=== PATIENT | male | born 1990 ===

== ENCOUNTER 2018-01-01 01:09 | Emergency (ER) | payer SELFPAY ==
[2018-01-01 01:28] VITALS: TEMP 98.8
[2018-01-01] MEDS ORDERED: Tdap Vaccine 0.5 ml Vial (10-64 yrs) IM ONE (02:05)
--- NOTE | 2018-01-01 03:56 | ED PDOC ---
Addendum entered and electronically signed by Yvonne Ca PA 01/01/18 06:09: Addendum Addendum: After wound was dressed, continued to ooze so 2 sutures placed with 4-0 nylon, lidocaine (no epi) used for digital nerve block. 01/01/18 06:08 Original Note: Upper Extremity Pain/Injury Time Seen by Provider: 01/01/18 01:25 Chief Complaint (Nursing): Abnormal Skin Integrity Chief Complaint (Provider): Skin Laceration History Per: Patient History/Exam Limitations: no limitations Onset/Duration Of Symptoms: Hrs Current Symptoms Are (Timing): Still Present Quality: "Pain" Additional Complaint(s): 27 year old male presents to the ER for an evaluation of a laceration between his right thumb and forefinger. Patient states he was carrying a box of wine which dropped and glass shattered. Patient sustained an injury between his thumb and forefinger. He believes there is glass but no foreign sensation of bodies. Patient reports he cannot move his right thumb. Denies drinking alcohol, dizziness or trauma to any other areas in the body. Past Medical History Reviewed: Historical Data, Nursing Documentation, Vital Signs Vital Signs: Last Vital Signs Temp 98.8 F 01/01/18 01:26 Pulse 85 01/01/18 01:26 Resp 17 01/01/18 01:26 BP 139/68 01/01/18 01:26 Pulse Ox 96 01/01/18 01:26 - Medical History PMH: No Chronic Diseases - Family History Family History: States: Unknown Family Hx - Home Medications Home Medications: Ambulatory Orders Medication Instructions Recorded Cephalexin [cephalexin] 500 mg PO BID 7 Days cap 01/01/18 Ibuprofen [Motrin Tab] 600 mg PO Q6H PRN 7 Days tab 01/01/18 - Allergies Allergies/Adverse Reactions: Allergies Allergy/AdvReac Type Severity Reaction Status Date / Time No Known Allergies Allergy Verified 01/01/18 01:27 Review of Systems ROS Statement: Except As Marked, All Systems Reviewed And Found Negative Musculoskeletal: Positive for: Hand Pain (right) Neurological: Negative for: Dizziness Psych: Negative for: Suicidal ideation (homicidal ideation) Physical Exam - Reviewed Nursing Documentation Reviewed: Yes Vital Signs Reviewed: Yes - Physical Exam Appears: Positive for: Well, Non-toxic, No Acute Distress Head Exam: Positive for: ATRAUMATIC, NORMAL INSPECTION, NORMOCEPHALIC Skin: Positive for: Normal Color, Warm, Dry. Negative for: Rash Pulses-Radial (R): 2+ Extremity: Positive for: Normal ROM (Able to actively and passively flex and extend digits 2-4 on right hand. Unable to active move at DIP or PIP. Patient able to flex and DIP passively), Tenderness (Superficial skin abrasion on 3rd digit of right hand, no foreign body noted), Capillary Refill (warm with good capillary refill ), Other (approximately 3-4cm superficial laceration at interdigital web space between right thumb and 2nd digit, close to base of thumb, minimal bleeding, no foreign bodies noticed upon inspection and exploration; superficial skin avulsion at base of 3rd digit on Right hand. ). Negative for: Deformity (Positive active and passive extension and flexion of right wrist ) Neurologic/Psych: Positive for: Alert, Oriented (x3). Negative for: Motor/Sensory Deficits - ECG O2 Sat by Pulse Oximetry: 96 (RA) Pulse Ox Interpretation: Normal Medical Decision Making Medical Decision Making: Time: 0203 Impression: 27 y/o male with superficial laceration of interdigital web between the right thumb and forefinger. Plan to consult hand surgeon. Initial Plan: Tetanus 0.5ml Motrin 600mg Right Hand 3 Views Reevaluation X-ray: No foreign body appreciated or fracture noticed, just soft tissue swelling noted. Case discussed with Dr. Peter Villegas (hand surgeon) who recommends placing dressing with gauze and splint. Pt to f/u with Dr. Villegas today or on Thursday01/04/18 for further evaluation of thumb injury. ----- Scribe Attestation: Documented by Radha Ruiz, acting as a scribe for Yvonne Ca PA-C. Provider Scribe Attestation: All medical record entries made by the Scribe were at my direction and personally dictated by me. I have reviewed the chart and agree that the record accurately reflects my personal performance of the history, physical exam, medical decision making, and the department course for this patient. I have also personally directed, reviewed, and agree with the discharge instructions and disposition. Disposition - Clinical Impression Clinical Impression: Laceration of right hand - Patient ED Disposition Is Patient to be Admitted: No Discussed With : Peter Villegas Comment: Ok to dc home and patient to f/u in office today or on Thursday01/04/18 Doctor Will See Patient In The: Office Counseled Patient/Family Regarding: Studies Performed, Diagnosis, Need For Followup, Rx Given - Disposition Referrals: Peter Villegas MD [Medical Doctor] - Disposition: Routine/Home Disposition Time: 04:55 Condition: STABLE Additional Instructions: F/u with Dr. Peter Villegas (hand surgeon) for further evaluation of possible injury to tendon on Right hand. Keep wound clean and dry. Prescriptions: Cephalexin [cephalexin] 500 mg PO BID 7 Days cap Ibuprofen [Motrin Tab] 600 mg PO Q6H PRN 7 Days tab PRN Reason: Pain, Moderate (4-7) Forms: [employer] (Latvian) Print Language: GERMAN - POA Present On Arrival: Falls Or Trauma (Right hand laceration to base of Right thumb at interdigital web. Mild skin avulsion at base of 3rd digit Right hand. )
[2018-01-01] MEDS ORDERED: Lidocaine PF 2% (5 ml) Inj (For Cardiac Arrhy) ONE (05:20)
[2018-01-01 06:32] VITALS: BP 130/62; PULSE 79; RESP 16; O2SAT 99
--- NOTE | 2018-01-01 08:46 | RAD ---
PROCEDURE: Right Hand Radiographs. HISTORY: Right hand cut with glass wine bottles COMPARISON: None. FINDINGS: BONES: No acute fracture or destructive bony lesion identified. JOINTS: No subluxation or dislocation appreciated throughout. No osteoarthritic changes. SOFT TISSUES: No retained radiodense foreign body identified definitively. Trace emphysematous changes are questioned at soft tissues between the long and ring fingers, potentially reflecting laceration or penetrating injury. OTHER FINDINGS: None. IMPRESSION: No fracture, subluxation or dislocation. No retained radiodense foreign body is appreciated throughout the right hand soft tissues. Trace emphysematous changes are suggested at the soft tissues between the bases of the long and ring fingers right hand.
== END 2018-01-01 05:45 | disposition home or self-care (01) ==
LOC: H.ER 01:09
DX: S61.411A Laceration without foreign body of right hand, initial encounter (principal); W25.XXXA Contact with sharp glass, initial encounter; Y92.89 Other specified places as the place of occurrence of the external cause